=== PATIENT | male | born 1960 | race Caucasian/White ===

== ENCOUNTER → 2016-03-16 | Outpatient (CLI) | payer BC ==
--- NOTE | 2016-03-16 10:57 | STRESSTEST ---
[facility] [place] Interpretive Statements This 55 y.o. male with episodes of non-exertional and migrating anterior chest discomfort is referred by Sonia Chapin NP for Rasheed stress. He has risk factors of DMII with A1c=6.4 recently, hypertension, and family history and a resting ECG with negative P-waves in 2 to 3 inferior leads and poor R-wave progression which he says was investigated with clean coronary angiography some years ago. He was able to exercise to 8.3 METs (105% PMHR) with beat to beat variable rate and some aberrancy without symptoms and immediate post exercise ECG showing no ST signs of ischemia. His rate was back to below 100 at 2 minutes. IMPRESSION: Ectopic Atrial rhythm with poor R-wave progression but no electrical signs of ischemia. PLAN: Stop stimulants and consider Cardiology consult. [email or web address]
== END ==
LOC: EKG 07:43
PROVIDERS: ATTEND Nurse Practitioner
DX: I10 Essential (primary) hypertension (principal); R07.9 Chest pain, unspecified; E11.9 Type 2 diabetes mellitus without complications; F43.20 Adjustment disorder, unspecified
CPT/HCPCS: 93016; 93017; 93018

== ENCOUNTER → 2016-03-17 | Outpatient (CLI) | payer BC ==
[2016-03-17 16:22] LABS: BLOOD UREA NITROGEN 20 mg/dL (7-22); CALCIUM 9.5 mg/dL (8.7-10.7); CHLORIDE 101 meq/L (98-112); CREATININE 0.8 mg/dL (0.70-1.50); EST GLOMERULAR FILTRATION > 60 (>60 ml/min/1.73m(2)); GLUCOSE 56 mg/dL (78-110); MAGNESIUM 1.8 mg/dL (1.6-2.4); POTASSIUM 4.6 meq/L (3.8-5.2); SODIUM 138 meq/L (135-145)
== END ==
LOC: MOB LAB 14:27
PROVIDERS: ATTEND Nurse Practitioner
DX: I10 Essential (primary) hypertension (principal); R79.89 Other specified abnormal findings of blood chemistry; F41.8 Other specified anxiety disorders
CPT/HCPCS: 36415; 80048; 83735; 84443

== ENCOUNTER → 2016-03-31 | Outpatient (CLI) | payer BC ==
[2016-03-31 16:01] LABS: BLOOD UREA NITROGEN 19 mg/dL (7-22); BUN/CREATININE RATIO 21.11 (6-20); CALCIUM 9.6 mg/dL (8.7-10.7); CHLORIDE 100 meq/L (98-112); CREATININE 0.9 mg/dL (0.70-1.50); EST GLOMERULAR FILTRATION > 60 (>60 ml/min/1.73m(2)); GLUCOSE 75 mg/dL (78-110); POTASSIUM 4.2 meq/L (3.8-5.2); SODIUM 139 meq/L (135-145)
== END ==
LOC: MOB LAB 14:51
PROVIDERS: ATTEND Nurse Practitioner
DX: I10 Essential (primary) hypertension (principal)
CPT/HCPCS: 36415; 80048

== ENCOUNTER → 2016-06-11 | Outpatient (CLI) | payer BC | LOC: MOB LAB 10:11 | PROVIDERS: ATTEND Nurse Practitioner | DX: F41.8 Other specified anxiety disorders (principal) | CPT/HCPCS: 36415; 80335 ==

== ENCOUNTER → 2016-07-23 | Outpatient (CLI) | payer BC ==
[2016-07-27 21:31] LABS: NORTRIPTYLINE 31 ng/mL (70-170)
== END ==
LOC: LAB 07-22 10:19
PROVIDERS: ATTEND Nurse Practitioner
DX: F41.8 Other specified anxiety disorders (principal); F90.0 Attention-deficit hyperactivity disorder, predominantly inattentive type; F43.20 Adjustment disorder, unspecified
CPT/HCPCS: 36415; 80335

== ENCOUNTER → 2016-09-15 | Outpatient (CLI) | payer BC ==
--- NOTE | 2016-09-16 11:25 | DI ---
XR C-SPINE 2-3 VW,09/15/2016 3:25 PM: Clinical History: Neck pain Previous Exam: None at this facility. Findings: Lateral, flexion and extension views of the cervical spine are obtained, and demonstrate anatomic ali gnment without fractures. Vertebral body height is preserved. Intervertebral disc height is also pres erved. Prevertebral soft tissues are unremarkable. There is no evidence of atlantoaxial instability. Impression: Normal flexion and extension views of the cervical spine.
== END ==
LOC: ORTHO 15:40
PROVIDERS: ATTEND Physician Assistant
DX: M47.22 Other spondylosis with radiculopathy, cervical region (principal); M54.2 Cervicalgia; R20.2 Paresthesia of skin
CPT/HCPCS: 72040